=== PATIENT | female | born 1995 | race Caucasian/White ===

== ENCOUNTER → 2017-11-28 06:28 | Emergency (ER) | payer OTHER ==
[~2017-11-28 06:28] MED LIST: Iohexol 300* (CONTRAST) 10 ML SDV IV ONE; Ketorolac INJ* 30 MG/ML 1 ML VIAL IV PUSH ONE; Morphine INJ* 10 MG/ML 1 ML CARPUJECT IV ONE; Morphine INJ* 4 MG/ML 1 ML SYRINGE (NEW SYRINGE VERSION) IV ONE; NS 0.9% 1000 ML* 1,000 ML IV ONE; Ondansetron INJ* 2 MG/ML VIAL IV ONE; cefTRIAXone(*) 1 GM in NS 0.9% 50 ML* 50 ML IVPB ONE
[2017-11-28 07:46] LABS: ABS Basophils 0 10^3/ul (0-0.2); ABS Eosinophils 0 10^3/ul (0-0.6); ABS Lymphocytes 0.4 10^3/ul (1.0-4.8); ABS Monocytes 0.5 10^3/ul (0-0.8); ABS Neutrophils 17.6 10^3/ul (1.5-7.7); ABS Nucleated RBC 0 10^3/ul; Eosinophil % 0 % (0-6); Hematocrit 38 % (35-47); Hemoglobin 12.8 g/dl (12.0-16.0); Lymphocyte % 2.3 % (25-47); Mean Corpuscular HGB Conc 34 g/dl (31-36); Mean Corpuscular Hemoglobin 30 pg (27-31); Mean Corpuscular Volume 87 fL (80-97); Mean Platelet Volume 8 um3 (7.4-10.4); Nucleated Red Blood Cells % 0; Platelet Count 302 10^3/ul (150-450); Red Blood Count 4.32 10^6/ul (4.0-5.4); Red Cell Distribution Width 13 % (10.5-15); White Blood Count 18.6 10^3/ul (3.5-10.8)
[2017-11-28 08:00] LABS: EGFR Non-African American 66.3 (>60)
--- NOTE | 2017-11-28 09:24 | RAD ---
CLINICAL HISTORY: Left-sided abdominal pain x1 day COMPARISON: None TECHNIQUE: Contrast enhanced CT examination of the abdomen and pelvis from the lung bases through the initial tuberosities. The patient received 81 mL Omnipaque 300 intravenously prior to imaging.The patient received oral contrast as well prior to imaging. FINDINGS: VISUALIZED LUNG BASES: The visualized lung bases are grossly clear. There is no pleural effusion. ABDOMEN AND PELVIS: The liver, spleen, pancreas and adrenal glands are grossly normal in appearance. The gallbladder is normal. The right kidney has normal in appearance without focal mass, calcification or signs of hydronephrosis. On the portal venous phase imaging there is delayed cortical medullary enhancement of the left kidney there is a mild degree of left-sided hydronephrosis. On the delayed phase imaging there is no excretion seen in the left kidney. In the vicinity of the left ureterovesical junction there is a punctate calcification that may be a renal stone. The oral contrast has progressed only as far as the proximal small bowel which prevents more thorough evaluation of the distal small bowel and colon. The small and large bowel are not distended. The patient's normal appendix is identified in the right lower quadrant with gas and stool in the lumen (image 54). There is no gross retroperitoneal or mesenteric lymphadenopathy. The pelvic viscera is normal in appearance. The abdominal aorta and iliac arteries are normal in course and diameter. There are no sinister bone lesions. IMPRESSION: There is mild left-sided hydronephrosis and delayed cortical medullary enhancement and no excretion on the 3 minute delayed images at the left kidney. At the expected location of the left ureterovesical junction there is a punctate calcification. Please correlate to signs and symptoms of obstructive uropathy.
[2017-11-28 10:08] LABS: Urine Appearance Cloudy; Urine Blood 1+ (Negative); Urine Color Yellow; Urine Ketones 1+ (Negative); Urine Protein Negative (Negative); Urine Specific Gravity 1.033 (1.010-1.030); Urine Urobilinogen Negative (Negative)
[2017-11-28] MEDS: Ciprofloxacin TAB* 500 MG PO ONE ×2 (12:11→13:59)
--- NOTE | 2017-11-28 13:34 | RAD ---
Indication: Left flank pain. Real-time sonography of the left kidney was performed. Correlation is made with CT dated earlier the same day. The left kidney measures 12.1 x 6.6 x 5.5 cm. There is fullness of the lower pole of the left renal collecting system. Bilateral ureteral jets are noted. IMPRESSION: Fullness of the left renal collecting system of the lower pole. Bilateral ureteral jets are noted.
[2017-11-28 13:54] VITALS: BP 115/67
--- NOTE | 2017-11-29 18:31 | ED ---
Benson Teixeira Angela, scribed for Frank Billingsley MD on 11/28/17 at 0724 . Abdominal Pain/Female - HPI Summary HPI Summary: This pt is a 22 y/o female presenting to [facility] c/o left sided abd pain and nausea since 02:00 this morning. Pt reports her pain is waxing and waning. At its best her pain is 3-4 out of 10 in severity. When her pain is aggravated, she rates her pain 7/10 in severity. Pt describes a sharp pain on the left side of her abd with deep inspiration. Denies diarrhea, constipation, fever, chest pain. Her last bowel movement was yesterday, which she describes as normal. LMP: 4 weeks ago (her next one is coming up this weekend). Pt called [facility], but they don't open until 10:00 today. - History of Current Complaint Chief Complaint: EDAbdPain Stated Complaint: ABD PAIN Time Seen by Provider: 11/28/17 07:10 Hx Obtained From: Patient Onset/Duration: Lasting Hours, Still Present Timing: Hours Severity Currently: Mild Pain Intensity: 3 Pain Scale Used: 0-10 Numeric Location: Other - left sided abd Radiates: No Character: Sharp Aggravating Factor(s): Deep Breaths Alleviating Factor(s): Nothing Associated Signs and Symptoms: Positive: Nausea. Negative: Fever, Chest Pain, Constipation, Vomiting, Diarrhea Allergies/Adverse Reactions: Allergies Allergy/AdvReac Type Severity Reaction Status Date / Time No Known Allergies Allergy Verified 11/28/17 06:33 PMH/Surg Hx/FS Hx/Imm Hx Endocrine/Hematology History: Denies: Hx Diabetes Cardiovascular History: Denies: Hx Hypertension Infectious Disease History: No Infectious Disease History: Denies: Traveled Outside the [place] in Last 30 Days - Family History Known Family History: Negative: Cardiac Disease, Hypertension, Diabetes - Social History Alcohol Use: None Substance Use Type: Reports: None Smoking Status (MU): Never Smoked Tobacco Review of Systems Negative: Fever, Chills Negative: Chest Pain Respiratory: Negative Positive: Abdominal Pain, Nausea. Negative: Diarrhea, Other - constipation Skin: Negative Neurological: Negative All Other Systems Reviewed And Are Negative: Yes Physical Exam - Summary Physical Exam Summary: VITAL SIGNS: Reviewed. GENERAL: Patient is a well-developed and nourished female who is lying comfortable in the stretcher. Patient is not in any acute respiratory distress. HEAD AND FACE: Normocephalic and atraumatic. EYES: PERRLA, EOMI x 2, No injected conjunctiva. EARS: Hearing grossly intact. Ear canals and tympanic membranes are WNL. MOUTH: Oropharynx within normal limits. NECK: Supple, trachea is midline, no adenopathy, no JVD. CHEST: Symmetric, no tenderness at palpation LUNGS: Clear to auscultation bilaterally. No wheezing or crackles. CVS: RRR, S1 and S2 present, no murmurs or gallops appreciated. ABDOMEN: Soft. Tenderness on the left side of the abdomen. No signs of distention. Positive bowel sounds. No rebound no guarding, and no masses palpated. No abdominal bruit or pulsations. EXTREMITIES: FROM in all major joints, no edema, no cyanosis or clubbing. NEURO: Alert and oriented x 3. No acute neurological deficits. Speech is normal. SKIN: Dry and warm Triage Information Reviewed: Yes Vital Signs On Initial Exam: Initial Vitals Temp Pulse Resp BP Pulse Ox 98.4 F 90 16 135/91 100 11/28/17 06:30 11/28/17 06:30 11/28/17 06:30 11/28/17 06:30 11/28/17 06:30 Vital Signs Reviewed: Yes Diagnostics - Vital Signs Vital Signs Temp Pulse Resp BP Pulse Ox 11/28/17 06:30 98.4 F 90 16 135/91 100 - Laboratory Result Diagrams: 11/28/17 07:26 11/28/17 07:26 Lab Statement: Any lab studies that have been ordered have been reviewed, and results considered in the medical decision making process. - CT Abdomen/Pelvis CT CT Interpretation: Positive (See Comments) - IMPRESSION: There is mild left- sided hydronephrosis and delayed cortical medullary enhancement and no excretion on the 3 minute delayed images at the left kidney. At the expected location of the left ureterovesical junction there is a punctate calcification. Please correlate to signs and symptoms of obstructive uropathy. Dr. Billingsley has reviewed this radiology report. CT Interpretation Completed By: Radiologist - Ultrasound No standard instances Ultrasound Interpretation: Positive (See Comments) - Left Renal Ultrasound IMPRESSION: Fullness of the left renal collecting system of the lower pole. Bilateral ureteral jets are noted. Dr. Billingsley has reviewed this radiology report. Ultrasound Interpretation Completed By: Radiologist Re-Evaluation - Re-Evaluation First Eval Re-Evaluation Time: 11:22 Comment: I reviewed the CT results with the pt. Second Eval Re-Evaluation Time: 11:55 Comment: Upon discharge, pt noted to have oral temperature of 99F. Third Eval Re-Evaluation Time: 13:28 Comment: I reviewed the US results with the pt and the need to follow up with PCP and Dr. Braun. Abdominal Pain Fem Course/Dx - Course Course Of Treatment: This pt is a 22 y/o female presenting to [facility] c/o left sided abd pain and nausea since 02:00 this morning. Pt reports her pain is waxing and waning. At its best her pain is 3-4 out of 10 in severity. When her pain is aggravated, she rates her pain 7/10 in severity. Pt describes a sharp pain on the left side of her abd with deep inspiration. Denies diarrhea, constipation, fever, chest pain. Her last bowel movement was yesterday, which she describes as normal. LMP: 4 weeks ago (her next one is coming up this weekend). Test results without any significant abnormalities except for WBC of 18.6, glucose of 122. Urinalysis is negative for UTI. Abdomen/Pelvis CT shows: There is mild left-sided hydronephrosis and delayed cortical medullary enhancement and no excretion on the 3 minute delayed images at the left kidney. At the expected location of the left ureterovesical junction there is a punctate calcification. Please correlate to signs and symptoms of obstructive uropathy. In the ED course the pt was given IV fluids, Toradol and morphine for the pain, Zofran for the nausea and Rocephin. Prior to discharge, the pt developed a fever of 99F. I discussed pt care with Dr. Braun, urologist, who recommends to order renal US and if negative the pt can be discharged to home with follow up in his office. Renal US: Fullness of the left renal collecting system of the lower pole. Bilateral ureteral jets are noted. Therefore, the pt will be discharged to home with follow up from Dr. Braun and PCP. She will be given a prescription for Motrin, Accident, and Bactrim. Pt is instructed to return to the ED for any worsening or new symptoms. Pt is hemodynamically stable, alert and oriented x3. - Diagnoses Provider Diagnoses: Kidney stone, Fever - Provider Notifications Discussed Care Of Patient With: Trip Braun Time Discussed With Above Provider: 12:01 Instructed by Provider To: Other - I discussed pt care with Dr. Braun, urologist , who recommends to order renal US. Discharge - Discharge Plan Condition: Stable Disposition: HOME Prescriptions: HYDROcodone/ACETAMIN 5-325 MG* [Accident 5-325 TAB*] 1 tab PO Q6H PRN #12 tab MDD 4 tabs PRN Reason: Pain Ibuprofen TAB* [Motrin TAB* 600 MG] 600 mg PO Q8H PRN #30 tab PRN Reason: Pain Sulfamethox/Trimethoprim DS* [Bactrim DS 800/160 TAB*] 1 tab PO BID #14 tab Patient Education Materials: Kidney Stones (ED) Referrals: [facility] [Outside] - 3 Days Trip Braun MD [Medical Doctor] - Additional Instructions: Please follow up with your primary care provider. RETURN TO THE ED FOR ANY WORSENING SYMPTOMS. The documentation as recorded by the Benson parra Angela accurately reflects the service I personally performed and the decisions made by , Frank Billingsley MD.
== END | disposition home or self-care (01) ==
LOC: ED 06:28
DX: N20.0 Calculus of kidney (principal); R50.9 Fever, unspecified; N13.30 Unspecified hydronephrosis
CPT/HCPCS: 36415; 74177; 76775; 80053; 81003; 81015; 82150; 83690; 83735; 84702; 85025; 86140; 87086; 99285; A9270-GY; J0696; J1885; J2270; J2405; Q9967